=== PATIENT | male | born 1970 | race Caucasian/White ===

== ENCOUNTER 2019-08-21 11:19 | Observation (INO) ==
[2019-08-21] MEDS ORDERED: OPTIRAY 320 125ml IV PRN (11:52)
--- NOTE | 2019-08-21 11:58 | CT Scan Report ---
CT head/brain wo con CLINICAL HISTORY: 49 years-old Male with Stroke evaluation . Acute strokelike symptoms TECHNIQUE: Multiple axial CT images of the head were obtained without contrast. A dose lowering tech nique was utilized adhering to the principles of ALARA. CT DOSE: 679.75 mGycm COMPARISON: None. FINDINGS: No acute intracranial hemorrhage, midline shift, intracranial mass, hydrocephalus, territorial ischem ia or abnormal extra-axial collection. Probable prominent perivascular space of the left lentiform nu cleus. The calvarium is intact. 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 Hypoplastic right frontal sinus. The paranasal sinuses, mastoid air cells, and middle ear cavities are clear. IMPRESSION: No acute intracranial abnormality. ACT 112: Negative or not required by law. The above report was generated using voice recognition software. It may contain grammatical, syntax o r spelling errors. Electronically signed by: Onur Mosquera M.D. 08/21/2019 11:56 AM
[2019-08-21 12:03] LABS: Basophils # (auto) 0.02 K/uL (0-0.2); Basophils % (auto) 0.3 %; Eosinophils # (auto) 0.09 K/uL (0-0.5); Eosinophils % (auto) 1.1 %; Hematocrit (blood only) 53.9 % (42-52); Hemoglobin 19.5 g/dL (14.0-18.0); Immature Granulocytes # (auto) 0.02 K/uL (0.00-0.02); Immature Granulocytes % (auto) 0.3 %; Lymphocytes # (auto) 1.91 K/uL (1.2-3.4); Lymphocytes % (auto) 24.1 %; Mean Corpuscular Hemoglobin 32.3 pg (25-34); Mean Corpuscular Hgb Conc 36.2 g/dL (32-36); Mean Corpuscular Volume 89.4 fL (80-100); Mean Platelet Volume 11.2 fL (7.4-10.4); Monocytes # (auto) 0.61 K/uL (0.11-0.59); Monocytes % (auto) 7.7 %; Neutrophils # (auto) 5.28 K/uL (1.4-6.5); Neutrophils % (auto) 66.5 %; Platelet Count 174 K/uL (130-400); RDW Coefficient of Variation 13.4 % (11.5-14.5); Red Blood Count 6.03 M/uL (4.7-6.1); White Blood Count 7.93 K/uL (4.8-10.8)
[2019-08-21 12:14] LABS: Partial Thromboplastin Ratio 1.1; Partial Thromboplastin Time 30.8 Seconds (21.0-31.0); Prothrombin Time 10.5 Seconds (9.0-12.0)
[2019-08-21 12:17] LABS: Alanine Aminotransferase 47 U/L (12-78); Albumin Level 3.8 gm/dl (3.4-5.0); Aspartate Aminotransferase 14 U/L (15-37); BUN Creatinine Ratio 9.1 (10-20); Blood Urea Nitrogen 9 mg/dl (7-18); Carbon Dioxide 25 mmol/L (21-32); Chloride 106 mmol/L (98-107); Est GFR (African American) 103.9; Est GFR (Non-African American) 89.7; Glucose 116 mg/dl (70-99); Potassium 3.8 mmol/L (3.5-5.1); Sodium 137 mmol/L (136-145)
--- NOTE | 2019-08-21 12:18 | CT Scan Report ---
CT angio head w con, CT angio neck with con CLINICAL HISTORY: 49 years-old Male with Stroke evaluation . Acute strokelike symptoms COMPARISON STUDY: Head CT of same day TECHNIQUE: Following the IV administration of 120 cc of Optiray 320, CT angiogram of the head and nec k was performed from the aortic arch to the skull apex. Images are reviewed in the axial, sagittal, a nd coronal planes. 3-D MIPS images are created and assessed. IV contrast was administered without com plication. All measurements were obtained according to NASCET criteria. A dose lowering technique was utilized adhering to the principles of ALARA. CT DOSE: 1306.16 mGycm FINDINGS: Three-vessel morphology of the thoracic aortic arch. Patency of the innominate artery and imaged bila teral subclavian arteries. Common carotid arteries are patent. Mild right and mild to moderate left c arotid bulb mixed atheromatous and atherosclerotic plaque formation results in less than 50% luminal narrowing bilaterally. Bilateral internal carotid arteries are patent. Calcified plaque of the cavern ous segments bilaterally without significant stenosis. There is mostly mild multifocal luminal narrow ing involving the bilateral middle and anterior cerebral arteries. There are 2 focal areas of high-gr nilo stenosis involving the left M2 branches (for example please see images 130 and 132 of series 3). Focal area of moderate luminal narrowing involves the A2 branch of the right anterior cerebral artery , image 132 series 3. Dominant left vertebral artery. Diminutive right vertebral artery is likely developmental. Patent bas ilar artery. origin of the right posterior cerebral artery. The bilateral posterior cerebral ar teries appear patent. The cerebral venous sinuses are also patent. No abnormal intracranial enhanceme nt. Lung apices are clear. No pneumothorax. Soft tissues are unremarkable. Unremarkable thyroid. Streak a rtifact from dental amalgam hardware. Mild degenerative changes of the cervical spine. IMPRESSION: 1. Areas of high-grade stenosis/near occlusion involve the left M2 branches as above. This finding in conjunction with mild multifocal luminal narrowing of the middle and anterior cerebral arteries with focal area of moderate grade stenosis involving the right anterior cerebral artery appear to be out of proportion to the degree of atherosclerotic vascular disease. 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 2. Mixed plaque of the bilateral carotid bulbs, left greater than right results in less than 50% angel nal narrowing. ACT 112: Negative or not required by law. The above report was generated using voice recognition software. It may contain grammatical, syntax o r spelling errors. Electronically signed by: Onur Mosquera M.D. 08/21/2019 12:17 PM
[2019-08-21] MEDS ORDERED: ASPIRIN CHEW 324 MG ONE (12:21)
[2019-08-21 12:24] LABS: Alkaline Phosphatase 79 U/L (45-117); Bilirubin,Total 0.5 mg/dl (0.2-1); Total Protein 7.8 gm/dl (6.4-8.2); Troponin I < 0.015 ng/ml (0-0.045)
--- NOTE | 2019-08-21 14:45 | History & Physical Report ---
Date of Service August 21, 2019 Assessment & Plan (1) Stroke-like symptoms: Expressive dysphasia, now resolved. ABCD2 score 3 - low risk, although symptoms already reoccurred after 1 day therefore warrants observation and workup inpatient CT head - no acute intracranial abnormality, CTA - high-grade stenosis/near occlusion involving left M2 branch likely cause of his symptoms ?vasculitis as out of proportion to degree of atherosclerotic disease Complete stroke workup: Monitor on telemetry ESR/CRP to assess for vasculitis given young age and CTA findings MRI brain w/o contrast TTE Lipid panel and HbA1C with AM labs Start ASA 81mg PO daily, Atorvastatin 80mg PO daily pending neuro review Consult neurology (2) Polycythemia: Suspect due to smoking +/- obesity Consider outpatient sleep study although not particularly symptomatic if he dies have DALILA Repeat CBC in AM. Consider EPO level +/- JAK2 mutation given suspected stroke if Hgb remains elevated. (3) Tobacco use disorder: Declines nicotine replcement products at this stage Encouraged to quit smoking given young age and atherosclerotic disease (4) DVT prophylaxis: Deferred due to young age and mobility Admission and Anticipated Discharge Date Admission Date: 08/21/19 History of Present Illness Chief Complaint: Expressive dysphasia Primary Care Provider: NO PCP Tony Neal is a 49 year old smoker who presents to the ER with sudden onset expressive dysphasia. He reports two episodes of this. Once yesterday around 10am that lasted for approximately 20 minutes. However today he had an episode starting around 9:45-10am which lasted for approximately 1 hour. He was unable to get the right words out of write the correct words. No extremity weakness of change in sensation. No facial droop noticed although he had bilateral perioral tingling associated with this. No change in vision or hearing. No headache or neck pain. Associated mild light headedness He reports smoking 0.75 packs/day. Intermittently tried quitting such as when his ex was with her daughter and managed to quit cold turkey for approximately 1 year. Last tried quitting a few years ago. No fevers, chills, shortness of breath, cough, loss of taste or smell. No Covid- 19 exposure. With regards to possible DALILA - snores, but feels rested after waking up, sleeps well, no excessive dreaming, no tiredness during the daytime. 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 Beliefs That Will Affect Care: None Current Living Situation: Alone Current Living Situation Comment: occasionally daughter lives with patient Other Information That Helps Us Care for You: No Feels Safe at Home: Yes Safety Concerns: Feels Safe At This Time Smoking Status: Current every day smoker Tobacco Type: cigarettes ; Cigarettes Per Day: 20 ; Do You Dip or Chew Tobacco: No ; Tobacco Cessation Education Requested by Patient: No Hx Alcohol Use: Yes Alcohol type: beer Hx Substance Use: Yes substance use type: marijuana Last Used Substance: Unknown Review of Systems Review of Systems: All systems reviewed & are unremarkable except as noted in HPI & below Physical Exam Constitutional: well developed, well nourished and + obese; no acute distress Eyes: PERRL, conjunctivae normal, anicteric sclerae ENMT: external ear and nose normal, oropharynx normal Neck: trachea midline, no thyromegaly Respiratory: normal respiratory effort, lungs clear to auscultation Cardiovascular: RRR, no murmur, no edema Gastrointestinal (Abdomen): normal bowel sounds, soft, nontender, no hepatosplenomegaly Musculoskeletal: no cyanosis or clubbing, extremities motor strength 5/5 Skin: no rashes, warm and dry Neurologic: CN's II-XI intact bilaterally, moves all extremities and awake; no focal motor deficits and not confused Speech / Cognition: normal speech, no expressive aphasia, no receptive aphasia and normal cognition Motor/Sensory: no tremor, no pronator drift and no sensory deficit Psychiatric: A+Ox3, euthymic affect Results & Data Results & Data ([facility]) Vital Signs (Past 12 Hours) Vital Signs Temp Pulse Pulse Resp BP BP Pulse Ox 08/21/19 13:31 81 18 92 08/21/19 13:30 79 17 119/78 92 08/21/19 13:20 82 17 92 08/21/19 13:10 79 14 94 08/21/19 13:01 84 12 94 08/21/19 13:00 83 14 134/83 94 08/21/19 12:50 81 20 97 08/21/19 12:46 86 12 123/77 94 08/21/19 12:45 80 16 123/77 97 08/21/19 12:40 83 15 94 08/21/19 12:34 87 23 135/92 95 08/21/19 12:32 86 16 135/92 96 08/21/19 12:31 83 14 08/21/19 12:27 15 147/115 H 96 08/21/19 12:24 93 H 16 08/21/19 12:07 86 18 156/101 H 95 08/21/19 12:06 97 08/21/19 11:31 36.9 C 94 H 20 163/[address] head/brain wo con IMPRESSION: No acute intracranial abnormality. CT angio head w con, CT angio neck with con IMPRESSION: 1. Areas of high-grade stenosis/near occlusion involve the left M2 branches as above. This finding in conjunction with mild multifocal luminal narrowing of the middle and anterior cerebral arteries with focal area of moderate grade stenosis involving the right anterior cerebral artery appear to be out of proportion to the degree of atherosclerotic vascular disease. 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 2. Mixed plaque of the bilateral carotid bulbs, left greater than right results in less than 50% luminal narrowing. ECG Indication: other (suspected CVA) Rate (beats per minute): 91 Rhythm: normal sinus Findings: + RBBB (incomplete); no acute ischemic change Comparison ECG Date: no prior available Code Status & VTE Plan Code Status Full VTE Prophylaxis Plan VTE Prophylaxis will be ordered: No PG Care Time/CCT Total # of Minutes Spent Total Time Spent with Patient: Total time spent is greater than 50% in coordination of care (as documented) at patient's floor/unit and/or counseling patient: Coding Level of Care Code 05364 OBS Care - Level 3 Diagnoses Stroke-like symptoms R29.90 Polycythemia D75.1 Tobacco use disorder F17.200 DVT prophylaxis Z29.9
[2019-08-21] MEDS ORDERED: ACETAMINOPHEN 325 MG TAB PO PRN (16:21)
[2019-08-21] MEDS ORDERED: PHARMACIST DISCHARGE MED REC CONSULT PRN (16:21)
[2019-08-21] MEDS ORDERED: ONDANSETRON INJ 2 MG/ML 2 ML VIAL IV PRN (16:21)
[2019-08-21] MEDS ORDERED: POLYETHYLENE (MIRALAX) 17 GM PACK PO PRN (16:21)
[2019-08-21] MEDS ORDERED: ALUMINUM/MAGNESIUM SUSP 30 ML UDC PO PRN (16:21)
[2019-08-21] MEDS ORDERED: MAGNESIUM HYDROXIDE SUSP 30 ML UDC PO PRN (16:21)
--- NOTE | 2019-08-21 18:26 | Emergency Department Note ---
History of Present Illness General Chief complaint: Neuro Symptoms/Deficit Stated complaint: CONFUSION,SPEECH,MOTOR SKILLS DECREASED Time Seen by Provider: 08/21/19 11:40 History of Present Illness Provider complaint: Strokelike symptoms Onset (ago): minute(s) (90) Location: head Current Pain Intensity: 0 Associated symptoms: no chest pain, no diaphoresis, no fever/chills, no headaches, no nausea/vomiting and no shortness of breath 49-year-old male presents emergency department for strokelike symptoms. He states he was working at home at 10 AM when he began having difficulties finding his words, slurring his words and numbness in his face. He states these symptoms occurred intermittently. He states that he had similar symptoms that occurred yesterday for a few minutes to an hour and resolved yesterday so he did not present to the emergency department yesterday. He became concerned when the same types of symptoms happened again today. He denies any fevers. No loss of taste or smell. No chest pain or difficulty breathing. No headache. Home Medications Home Medications Medication Instructions Recorded Confirmed Type No Known Home Medications 08/21/19 08/21/19 History Allergies Allergy/AdvReac Type Severity Reaction Status Date / Time No Known Allergies Allergy Unverified 08/21/19 13:01 Past Med/Surg History Medical History (Updated 08/21/19 @ 18:26 by Elver Munoz) No pertinent family history No pertinent past medical history Surgical History (Updated 08/21/19 @ 18:20 by Elver Munoz) No pertinent past surgical history Social History Preferred Language: Chinese Communication Ability: Effective Take Away Worker Required: No Beliefs That Will Affect Care: None Current Living Situation: Alone Current Living Situation Comment: occasionally daughter lives with patient Other Information That Helps Us Care for You: No Feels Safe at Home: Yes Safety Concerns: Feels Safe At This Time Smoking Status: Current every day smoker Tobacco Type: cigarettes ; Cigarettes Per Day: 20 ; Do You Dip or Chew Tobacco: No ; Tobacco Cessation Education Requested by Patient: No Hx Alcohol Use: Yes Alcohol type: beer Hx Substance Use: Yes substance use type: marijuana Last Used Substance: Unknown Review of Systems A total of 10 systems reviewed and were otherwise negative Physical Exam Vital Signs Vital Signs - 24 hr 08/21/19 11:31 08/21/19 12:06 08/21/19 12:07 Temperature 36.9 C Temperature Source Oral Pulse Rate 94 H Pulse Rate [Left Finger] 86 Pulse Rate from SpO2 Sensor Respiratory Rate 20 18 Respiratory Effort / Characteristics Non-Labored Spontaneous Respiratory Depth Normal Respiratory Pattern Regular Blood Pressure 163/98 H Blood Pressure [Left Arm] 156/101 H Blood Pressure Mean 119 Blood Pressure Mean [Left Arm] 119 Pulse Oximetry 96 97 95 Oxygen Delivery Method Room Air Room Air Room Air Sepsis Recent Fever Within 48 Hours No Sepsis Action Taken by Nursing No Action Required 08/21/19 12:24 08/21/19 12:27 08/21/19 12:31 Temperature Temperature Source Pulse Rate 93 H 83 Pulse Rate [Left Finger] Pulse Rate from SpO2 Sensor 99 H Respiratory Rate 16 15 14 Respiratory Effort / Characteristics Respiratory Depth Respiratory Pattern Blood Pressure 147/115 H Blood Pressure [Left Arm] Blood Pressure Mean 125 Blood Pressure Mean [Left Arm] Pulse Oximetry 96 Oxygen Delivery Method Sepsis Recent Fever Within 48 Hours Sepsis Action Taken by Nursing 08/21/19 12:32 08/21/19 12:34 08/21/19 12:40 Temperature Temperature Source Pulse Rate 87 83 Pulse Rate [Left Finger] 86 Pulse Rate from SpO2 Sensor 87 84 Respiratory Rate 16 23 15 Respiratory Effort / Characteristics Respiratory Depth Respiratory Pattern Blood Pressure 135/92 Blood Pressure [Left Arm] 135/92 Blood Pressure Mean 99 Blood Pressure Mean [Left Arm] 106 Pulse Oximetry 96 95 94 Oxygen Delivery Method Room Air Sepsis Recent Fever Within 48 Hours Sepsis Action Taken by Nursing 08/21/19 12:45 08/21/19 12:46 08/21/19 12:50 Temperature Temperature Source Pulse Rate 86 81 Pulse Rate [Left Finger] 80 Pulse Rate from SpO2 Sensor 85 82 Respiratory Rate 16 12 20 Respiratory Effort / Characteristics Respiratory Depth Respiratory Pattern Blood Pressure 123/77 Blood Pressure [Left Arm] 123/77 Blood Pressure Mean 91 Blood Pressure Mean [Left Arm] 92 Pulse Oximetry 97 94 97 Oxygen Delivery Method Room Air Sepsis Recent Fever Within 48 Hours Sepsis Action Taken by Nursing 08/21/19 13:00 08/21/19 13:01 08/21/19 13:10 Temperature Temperature Source Pulse Rate 83 84 79 Pulse Rate [Left Finger] Pulse Rate from SpO2 Sensor 83 85 81 Respiratory Rate 14 12 14 Respiratory Effort / Characteristics Respiratory Depth Respiratory Pattern Blood Pressure 134/83 Blood Pressure [Left Arm] Blood Pressure Mean 95 Blood Pressure Mean [Left Arm] Pulse Oximetry 94 94 94 Oxygen Delivery Method Sepsis Recent Fever Within 48 Hours Sepsis Action Taken by Nursing 08/21/19 13:20 08/21/19 13:30 08/21/19 13:31 Temperature Temperature Source Pulse Rate 82 79 81 Pulse Rate [Left Finger] Pulse Rate from SpO2 Sensor 81 79 81 Respiratory Rate 17 17 18 Respiratory Effort / Characteristics Respiratory Depth Respiratory Pattern Blood Pressure 119/78 Blood Pressure [Left Arm] Blood Pressure Mean 83 Blood Pressure Mean [Left Arm] Pulse Oximetry 92 92 92 Oxygen Delivery Method Sepsis Recent Fever Within 48 Hours Sepsis Action Taken by Nursing 08/21/19 13:40 08/21/19 13:50 08/21/19 14:00 Temperature Temperature Source Pulse Rate 73 77 83 Pulse Rate [Left Finger] Pulse Rate from SpO2 Sensor 72 78 Respiratory Rate 13 20 20 Respiratory Effort / Characteristics Respiratory Depth Respiratory Pattern Blood Pressure 109/71 Blood Pressure [Left Arm] Blood Pressure Mean 83 Blood Pressure Mean [Left Arm] Pulse Oximetry 96 94 Oxygen Delivery Method Sepsis Recent Fever Within 48 Hours Sepsis Action Taken by Nursing 08/21/19 14:10 08/21/19 14:20 08/21/19 14:30 Temperature Temperature Source Pulse Rate 83 77 71 Pulse Rate [Left Finger] Pulse Rate from SpO2 Sensor 78 77 70 Respiratory Rate 21 18 15 Respiratory Effort / Characteristics Respiratory Depth Respiratory Pattern Blood Pressure 116/78 Blood Pressure [Left Arm] Blood Pressure Mean 91 Blood Pressure Mean [Left Arm] Pulse Oximetry 95 94 94 Oxygen Delivery Method Sepsis Recent Fever Within 48 Hours Sepsis Action Taken by Nursing 08/21/19 14:31 08/21/19 14:40 Temperature Temperature Source Pulse Rate 70 67 Pulse Rate [Left Finger] Pulse Rate from SpO2 Sensor 70 70 Respiratory Rate 17 16 Respiratory Effort / Characteristics Respiratory Depth Respiratory Pattern Blood Pressure Blood Pressure [Left Arm] Blood Pressure Mean Blood Pressure Mean [Left Arm] Pulse Oximetry 93 94 Oxygen Delivery Method Sepsis Recent Fever Within 48 Hours Sepsis Action Taken by Nursing Physical Exam GENERAL: He is oriented to person, place, and time. He appears well-developed and well-nourished. He does not appear distressed. HENT: Exam performed. - Head: Normocephalic and atraumatic. - Right Ear: External ear normal. No mastoid tenderness. - Left Ear: External ear normal. No mastoid tenderness. - Mouth/Throat: The oropharynx is clear and moist. No trismus in the jaw. No dental abscesses or uvula swelling. No oropharyngeal exudate or tonsillar abscesses. EYES: Conjunctivae and EOM are normal. Pupils are equal, round, and reactive to light. Right eye exhibits no discharge. Left eye exhibits no discharge. No scleral icterus. NECK: Normal range of motion. Neck supple. No JVD present. No spinous process tenderness present. No carotid bruit present. No rigidity. No tracheal deviation and normal range of motion present. No Brudzinski's sign and no Kernig's sign noted. CV: Normal rate, regular rhythm, normal heart sounds and intact distal pulses. There is no peripheral edema. Palpable radial pulses bue. PULM/CHEST: Effort normal and breath sounds normal. No respiratory distress. No stridor. He has no wheezes. He has no rales. - Chest Wall: He exhibits no tenderness. ABD: The abdomen is soft. Bowel sounds are normal. He has no distension. No mass is present. There is no tenderness. There is no rebound, no guarding, no Kovacs's sign and no tenderness at McBurney's point. Rovsig negative. MUSC/SKEL: Normal range of motion. There is no peripheral edema, tenderness or deformity. LYMPH: No cervical adenopathy. NEURO: HSS: 2 (1 for dysarthria and 1 for aphasia) SKIN: Skin is warm and dry. He is not diaphoretic. PSYCH: He has a normal mood and affect. Behavior is normal. Judgment and thought content normal. Course Course 1130: The patient was evaluated in room B1. A complete history and physical exam was performed. Patient was admitted and seen in the emergency department. He has a stroke scale of 2. Code stroke called on the patient. Patient was taken immediately to the CT scanner. 1317: Cardiac monitoring: An order was placed for continuous cardiac monitoring. The monitor shows a rate of 90 with sinus rhythm Vital signs stable. CT of the head CTA of the neck, and CT of the head are negative. Discussed with Dr. Anupam Patton tele-neurology who states admit the patient is a TIA and for further stroke work-up including MRI. She recommends aspirin at this time. Patient is in agreement with this plan. Contacting [facility] hospitalist team Dr. Ellis who agreed to the admission. Administered Medications Discontinued Medications Aspirin (Aspirin) Confirm Administered Dose 324 mg .ROUTE .STK-MED ONE Stop: 08/21/19 12:22 Last Admin: 08/21/19 12:25 Dose: 324 mg Documented by: [id number] Ioversol (Optiray 320 125ml) 120 ml IV ONCE PRN PRN Reason: Interaction Checking Stop: 08/25/19 11:51 Last Admin: 08/21/19 11:53 Dose: 120 ml Documented by: [id number] Critical Care Time Critical Care Time: Yes Total Critical Care Time: 105 I have personally spent greater than 105 minutes of critical care time in the direct management of this patient. This includes bedside care, interpretation of diagnostic studies, and testing, discussion with consultants, patient, and family members, and other required patient management activities. This 105 minutes is in excess of all separately billable procedures. Medical Decision Making Laboratory Data Result diagrams: 08/21/19 11:45 08/21/19 11:45 Lab Results 08/21/19 08/21/19 08/21/19 Range/Units 11:45 11:45 11:45 WBC 7.93 (4.8-10.8) K/uL RBC 6.03 (4.7-6.1) M/uL Hgb 19.5 H (14.0-18.0) g/dL Hct 53.9 H (42-52) % MCV 89.4 (80-100) fL MCH 32.3 (25-34) pg MCHC 36.2 H (32-36) g/dL RDW Std Deviation 44.0 (36.4-46.3) fL RDW Coeff of Bethany 13.4 (11.5-14.5) % Plt Count 174 (130-400) K/uL MPV 11.2 H (7.4-10.4) fL Immature Gran % (Auto) 0.3 % Neut % (Auto) 66.5 % Lymph % (Auto) 24.1 % Benson % (Auto) 7.7 % Eos % (Auto) 1.1 % Baso % (Auto) 0.3 % Immature Gran # (Auto) 0.02 (0.00-0.02) K/uL Neut # (Auto) 5.28 (1.4-6.5) K/uL Lymph # (Auto) 1.91 (1.2-3.4) K/uL Benson # (Auto) 0.61 H (0.11-0.59) K/uL Eos # (Auto) 0.09 (0-0.5) K/uL Baso # (Auto) 0.02 (0-0.2) K/uL ESR (0-14) mm/hr PT 10.5 (9.0-12.0) Seconds INR 1.0 (0.9-1.1) APTT 30.8 (21.0-31.0) Seconds PTT Ratio 1.1 Sodium (136-145) mmol/L Potassium (3.5-5.1) mmol/L Chloride (98-107) mmol/L Carbon Dioxide (21-32) mmol/L Anion Gap (3-11) BUN (7-18) mg/dl Creatinine (0.6-1.4) mg/dl Est Cr Clr Drug Dosing ml/min Est GFR ( Amer) Est GFR (Non-Af Amer) BUN/Creatinine Ratio (10-20) Glucose (70-99) mg/dl Calcium (8.5-10.1) mg/dl Magnesium (1.8-2.4) mg/dl Total Bilirubin (0.2-1) mg/dl AST (15-37) U/L ALT (12-78) U/L Alkaline Phosphatase (45-117) U/L Troponin I (0-0.045) ng/ml C-Reactive Protein (0-0.29) mg/dl Total Protein (6.4-8.2) gm/dl Albumin (3.4-5.0) gm/dl Globulin (2.5-4.0) gm/dl Albumin/Globulin Ratio (0.9-2) Blood Type AB Positive Antibody Screen NEGATIVE 08/21/19 08/21/19 08/21/19 Range/Units 11:45 11:45 11:45 WBC (4.8-10.8) K/uL RBC (4.7-6.1) M/uL Hgb (14.0-18.0) g/dL Hct (42-52) % MCV (80-100) fL MCH (25-34) pg MCHC (32-36) g/dL RDW Std Deviation (36.4-46.3) fL RDW Coeff of Bethany (11.5-14.5) % Plt Count (130-400) K/uL MPV (7.4-10.4) fL Immature Gran % (Auto) % Neut % (Auto) % Lymph % (Auto) % Benson % (Auto) % Eos % (Auto) % Baso % (Auto) % Immature Gran # (Auto) (0.00-0.02) K/uL Neut # (Auto) (1.4-6.5) K/uL Lymph # (Auto) (1.2-3.4) K/uL Benson # (Auto) (0.11-0.59) K/uL Eos # (Auto) (0-0.5) K/uL Baso # (Auto) (0-0.2) K/uL ESR 13 (0-14) mm/hr PT (9.0-12.0) Seconds INR (0.9-1.1) APTT (21.0-31.0) Seconds PTT Ratio Sodium 137 (136-145) mmol/L Potassium 3.8 (3.5-5.1) mmol/L Chloride 106 (98-107) mmol/L Carbon Dioxide 25 (21-32) mmol/L Anion Gap 6.0 (3-11) BUN 9 (7-18) mg/dl Creatinine 0.99 (0.6-1.4) mg/dl Est Cr Clr Drug Dosing 104.0 ml/min Est GFR ( Amer) 103.9 Est GFR (Non-Af Amer) 89.7 BUN/Creatinine Ratio 9.1 L (10-20) Glucose 116 H (70-99) mg/dl Calcium 9.0 (8.5-10.1) mg/dl Magnesium 2.0 (1.8-2.4) mg/dl Total Bilirubin 0.5 (0.2-1) mg/dl AST 14 L (15-37) U/L ALT 47 (12-78) U/L Alkaline Phosphatase 79 (45-117) U/L Troponin I < 0.015 (0-0.045) ng/ml C-Reactive Protein 0.47 H (0-0.29) mg/dl Total Protein 7.8 (6.4-8.2) gm/dl Albumin 3.8 (3.4-5.0) gm/dl Globulin 4.0 (2.5-4.0) gm/dl Albumin/Globulin Ratio 1.0 (0.9-2) Blood Type Antibody Screen Imaging Data Radiologist's Impression: CT angio head w con, CT angio neck with con CLINICAL HISTORY: 49 years-old Male with Stroke evaluation . Acute strokelike symptoms COMPARISON STUDY: Head CT of same day TECHNIQUE: Following the IV administration of 120 cc of Optiray 320, CT angiogram of the head and neck was performed from the aortic arch to the skull apex. Images are reviewed in the axial, sagittal, and coronal planes. 3-D MIPS images are created and assessed. IV contrast was administered without complication. All measurements were obtained according to NASCET criteria. A dose lowering technique was utilized adhering to the principles of ALARA. CT DOSE: 1306.16 mGycm FINDINGS: Three-vessel morphology of the thoracic aortic arch. Patency of the innominate artery and imaged bilateral subclavian arteries. Common carotid arteries are patent. Mild right and mild to moderate left carotid bulb mixed atheromatous and atherosclerotic plaque formation results in less than 50% luminal narrowing bilaterally. Bilateral internal carotid arteries are patent. Calcified plaque of the cavernous segments bilaterally without significant stenosis. There is mostly mild multifocal luminal narrowing involving the bilateral middle and anterior cerebral arteries. There are 2 focal areas of high-grade stenosis involving the left M2 branches (for example please see images 130 and 132 of series 3). Focal area of moderate luminal narrowing involves the A2 branch of the right anterior cerebral artery, image 132 series 3. Dominant left vertebral artery. Diminutive right vertebral artery is likely developmental. Patent basilar artery. origin of the right posterior cerebral artery. The bilateral posterior cerebral arteries appear patent. The cerebral venous sinuses are also patent. No abnormal intracranial enhancement. Lung apices are clear. No pneumothorax. Soft tissues are unremarkable. Unremarkable thyroid. Streak artifact from dental amalgam hardware. Mild degenerative changes of the cervical spine. IMPRESSION: 1. Areas of high-grade stenosis/near occlusion involve the left M2 branches as above. This finding in conjunction with mild multifocal luminal narrowing of the middle and anterior cerebral arteries with focal area of moderate grade stenosis involving the right anterior cerebral artery appear to be out of proportion to the degree of atherosclerotic vascular disease. Correlate clinically to exclude an underlying HR PAYROLL COORDINATOR vasculitis. 2. Mixed plaque of the bilateral carotid bulbs, left greater than right results in less than 50% luminal narrowing. ACT 112: Negative or not required by law. The above report was generated using voice recognition software. It may contain grammatical, syntax or spelling errors. Electronically signed by: Onur Mosquera M.D. 08/21/2019 12:17 PM Dictated: 08/21/19 1204 Transcribed: 08/21/[address] head/brain wo con CLINICAL HISTORY: 49 years-old Male with Stroke evaluation . Acute strokelike symptoms TECHNIQUE: Multiple axial CT images of the head were obtained without contrast. A dose lowering technique was utilized adhering to the principles of ALARA. CT DOSE: 679.75 mGycm COMPARISON: None. FINDINGS: No acute intracranial hemorrhage, midline shift, intracranial mass, hydrocephalus, territorial ischemia or abnormal extra-axial collection. Probable prominent perivascular space of the left lentiform nucleus. The calvarium is intact. 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 Hypoplastic right frontal sinus. The paranasal sinuses, mastoid air cells, and middle ear cavities are clear. IMPRESSION: No acute intracranial abnormality. ACT 112: Negative or not required by law. The above report was generated using voice recognition software. It may contain grammatical, syntax or spelling errors. Electronically signed by: Onur Mosquera M.D. 08/21/2019 11:56 AM Dictated: 08/21/19 1154 Transcribed: 08/21/19 115 ECG Data Indication: + other (Stroke) Rate (beats per minute): 91 Rhythm: + normal sinus ECG Intervals/blocks: + Normal QRS, + Normal CT and + Normal QT-c ECG ST segments: + Normal ST segments MDM Narrative 1130: The patient was evaluated in room B1. A complete history and physical exam was performed. Patient was admitted and seen in the emergency department. He has a stroke scale of 2. Code stroke called on the patient. Patient was taken immediately to the CT scanner. 1317: Cardiac monitoring: An order was placed for continuous cardiac m onitoring. The monitor shows a rate of 90 with sinus rhythm Vital signs stable. CT of the head CTA of the neck, and CT of the head are negative. Discussed with Dr. Anupam Patton tele-neurology who states admit the patient is a TIA and for further stroke work-up including MRI. She recommends aspirin at this time. Patient is in agreement with this plan. [facility]. Ellis who agreed to the admission. Impression & Plan TIA (transient ischemic attack) Discharge Plan Visit Data *Final* Discharge Date/Time: 08/21/19 16:00 Chief Complaint: Neuro Symptoms/Deficit Stated Complaint: CONFUSION,SPEECH,MOTOR SKILLS DECREASED ED Provider: Elver Munoz Discharge Problem: TIA (transient ischemic attack) Patient Disposition: Admitted As Inpatient Discharge Instructions Interventions: ED Discharge Assessment Last Done: 08/21/19 16:00
--- NOTE | 2019-08-21 20:29 | Magnetic Resonance Report ---
MRI OF THE BRAIN WITHOUT CONTRAST CLINICAL HISTORY: Expressive aphasia. COMPARISON STUDY: CT scan performed 08/21/2019 FINDINGS: Sagittal T1, axial diffusion, proton density and T2 weighted axial, coronal FLAIR, and axial T1-weigh dilan images were acquired. No intra or extra-axial mass lesions are visualized Axial diffusion-weighted images reveal no evidence of acute or subacute infarction. There is no evidence of ventricular dilatation. Subtle increased signal within the right posterior pa rietal cortex is felt to be artifactual. There is no corresponding ADC abnormality. There is no corre sponding T2 or FLAIR abnormality. Proton density T2-weighted and FLAIR images reveal a few scattered foci of increased T2 signal within the white matter, likely on a small vessel basis. There are no abnormal flow voids. IMPRESSION: 1. No acute intracranial findings 2. No evidence of intracranial mass in this noncontrast study 3. No evidence of acute or subacute infarction ACT 112: Negative or not required by law. Electronically signed by: Juan Oliva M.D. 08/21/2019 8:27 PM
[2019-08-21] MEDS ORDERED: ATORVASTATIN 40 MG TAB PO SCH (21:00)
[2019-08-22 05:50] LABS: Basophils # (auto) 0.02 K/uL (0-0.2); Basophils % (auto) 0.2 %; Eosinophils # (auto) 0.13 K/uL (0-0.5); Eosinophils % (auto) 1.3 %; Hematocrit (blood only) 53.8 % (42-52); Immature Granulocytes # (auto) 0.03 K/uL (0.00-0.02); Immature Granulocytes % (auto) 0.3 %; Lymphocytes % (auto) 32.4 %; Mean Corpuscular Hemoglobin 32.4 pg (25-34); Mean Corpuscular Hgb Conc 35.3 g/dL (32-36); Mean Corpuscular Volume 91.8 fL (80-100); Mean Platelet Volume 10.5 fL (7.4-10.4); Monocytes # (auto) 0.68 K/uL (0.11-0.59); Monocytes % (auto) 6.9 %; Neutrophils # (auto) 5.82 K/uL (1.4-6.5); Neutrophils % (auto) 58.9 %; Platelet Count 175 K/uL (130-400); RDW Coefficient of Variation 13.7 % (11.5-14.5); Red Blood Count 5.86 M/uL (4.7-6.1); White Blood Count 9.88 K/uL (4.8-10.8)
--- NOTE | 2019-08-22 06:00 | Electrocardiogram Report ---
Test Reason : Blood Pressure : / mmHG Vent. Rate : 091 BPM Atrial Rate : 091 BPM P-R Int : 130 ms QRS Dur : 108 ms QT Int : 364 ms P-R-T Axes : 058 062 051 degrees QTc Int : 447 ms Normal sinus rhythm Incomplete right bundle branch block Borderline ECG No previous ECGs available Confirmed by Wli Quintanilla ([id number]) on 08/22/2019 6:00:34 AM Referred By: Confirmed By:Wil Quintanilla
[2019-08-22 06:20] LABS: BUN Creatinine Ratio 11.2 (10-20); Calcium 8.4 mg/dl (8.5-10.1); Creatinine Clr Calc Pharmacy 110.9 ml/min; Est GFR (African American) 113.6
[2019-08-22 06:25] LABS: Estimated Average Glucose 108 mg/dl; Hemoglobin A1C 5.4 % (4.5-5.6)
[2019-08-22] MEDS ORDERED: ASPIRIN 81 MG ECTAB PO SCH (09:00)
--- NOTE | 2019-08-22 11:06 | Neurology Consultation ---
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 He has mild to moderate diffuse atherosclerotic change in other cranial vascular distributions. Although vasculitis was also suggested in the differential diagnosis by the interpreting radiologist, this patient does not have headache, myalgia or a significantly elevated ESR. Stroke risk factors for this patient would include cigarette smoking and polycythemia. Agree with starting high intensity statin therapy and daily low-dose aspirin. Would also recommend hematology evaluation of polycythemia which could be a significant risk factor for this patient. Would also order hypercoagulable lab evaluation. Although vasculitis seems unlikely given normal ESR and lack of associated systemic symptomatology, would also consider obtaining some lab evaluation for vasculitis such as an BRYAN 12 panel including ANCA antibodies (NC-3/MPO), serum cryoglobulins/lupus anticoagulant, and lab evaluation for viral hepatitis. Could also consider obtaining blood cultures to rule out endocarditis. Follow-up with results of transthoracic echocardiogram, consider obtaining a transesophageal echocardiogram as well. History of Present Illness Reason for Consultation: Expressive aphasia Requesting Physician: Scotty Ellis MD Attending Physician: Alton Zarate DO History of Present Illness The patient is a 49-year-old male with a chief complaint of intermittent difficulty with expressive speech that began 1 day prior to presentation in the emergency department. He reports an episode of sudden onset difficulty with word finding and typing on his computer on August 19 that persisted for about 15 minutes and resolved. He does not recall experiencing any associated headache, vision loss, vertigo, or focal weakness at that time. He did not seek medical evaluation for that episode. A second episode occurred the following day, on August 20 at around 10 AM. He was working on his computer at home at that time as well when he experienced sudden onset difficulty with expressive speech. He was unable to find specific words. He does not recall experiencing any associated headache, vision loss, vertigo, or focal weakness at that time. He reports that his 11-year-old daughter was home with him. His daughter called his spouse who brought him to the emergency department for further assessment. His symptoms had begun to resolve by the time he was assessed in the emergency department, and completely resolved within about 1 hour from onset. He has not had a recurrence of symptoms overnight and indicates that he feels like his usual self. He does not have a known history of stroke or TIA. He denies experiencing any significant antecedent illness or injury. No history of DVT or thromboembolic disease. He smokes about 1/2-3/4 of a pack of cigarettes per day. He does not see his primary care physician very often. Family history: patient denies a family history of stroke or thromboembolic disease. He also denies a history of autoimmune or inflammatory disease. Allergies Allergy/AdvReac Type Severity Reaction Status Date / Time No Known Allergies Allergy Unverified 08/21/19 13:01 Home Medications Home Medications Medication Instructions Recorded Confirmed Type No Known Home Medications 08/21/19 08/21/19 History Patient History Medical History No pertinent family history No pertinent past medical history Surgical History No pertinent past surgical history Social History Preferred Language: Kenyan Communication Ability: Effective Accounts Receivable Associate Required: No Beliefs That Will Affect Care: None Current Living Situation: Alone Current Living Situation Comment: occasionally daughter lives with patient Other Information That Helps Us Care for You: No Feels Safe at Home: Yes Safety Concerns: Feels Safe At This Time Smoking Status: Current every day smoker Tobacco Type: cigarettes ; Cigarettes Per Day: 20 ; Do You Dip or Chew Tobacco: No ; Tobacco Cessation Education Requested by Patient: No Hx Alcohol Use: Yes Alcohol type: beer Hx Substance Use: Yes substance use type: marijuana Last Used Substance: Unknown Review of Systems Constitutional: no fever and no chills Eyes: no blind spots and no diplopia Ear, Nose, Mouth, Throat: no hearing loss Respiratory: no cough and no dyspnea Cardiovascular: no chest pain and no palpitations Gastrointestinal: no nausea and no vomiting Genitourinary: no dysuria and no urinary incontinence Musculoskeletal: no neck pain and no myalgia Integumentary: no rash and no lesions Neurologic: as per Subjective / HPI; no localized weakness, no loss of sensation, no seizure-like activity, no syncope and no headache(s) Psychiatric: no depression and no anxiety Hematologic / Lymphatic: no easy bleeding and no easy bruising Exam (Neuro) Constitutional: well developed and well nourished; no acute distress Eyes: normal visual zepeda by confrontation, PERRL, normal accommodation and EOM intact bilaterally; no fundoscopic abnormality, no nystagmus and no papilledema Cardiovascular: Vessels: normal carotid upstroke; no carotid bruit Neurologic: Oriented to:: Person, Place and Time Memory: Short Term Intact and Remote Intact Attention: Span Intact and Concentration Intact Language: Naming Objects and Repeating Phrases Speech Fluency: negative Dysarthria Speech Aphasia: negative Aphasia Fund of Knowledge: Current Events, Past History and Vocabulary Cranial Nerves: Normal II (Visual zepeda full to confrontation, visual acuity normal), III, IV, (Pupils equal round reactive to light and accommodation, eye movements normal), V (Facial sensation intact), VII (There is no facial droop or weakness), VIII (Hearing intact), IX, X (Palate elevates to midline), XI (Shoulder shrug intact) and XII (Tongue protrudes to midline) Motor Strength: Normal Lower Extremities and Normal Upper Extremities; negative Pronator Drift Motor Tone: Normal Lower Extremities and Normal Upper Extremities Muscle Bulk/Involuntary Movements: No Involuntary Movements; negative Muscle Atrophy Sensation: Light Touch Intact, Pain/Temperature Intact, Vibration Intact and Proprioception Intact Coordination: Normal; negative Limited Balance, Dysdiadochokinesia, Finger-Nose Abnormal and Heel-Rosenbaum Abnormal Deep Tendon Reflexes: Rt Triceps: 2+, Lt Triceps: 2+, Rt Biceps: 2+, Lt Biceps: 2+, Rt Brachioradialis: 2+, Lt Brachioradialis: 2+, Rt Patellar: 2+, Lt Patellar: 2+, Rt Ankle: 2+ and Lt Ankle: 2+ Special Tests: negative Babinski Present Gait: Normal Station and Gait Results & Data ([facility]) Vital Signs (Past 12 Hours) Vital Signs Temp Pulse Pulse Resp BP Pulse Ox 08/22/19 08:03 36.7 C 70 17 132/78 95 08/22/19 03:52 37.0 C 79 17 115/77 96 08/21/19 23:50 75 08/21/19 23:31 37.1 C 67 18 114/74 96 Laboratory Results WBC 9.88, hemoglobin 19.0, hematocrit 53.8, platelet count 175 ESR 13, PT 10.5, INR 1.0, PTT 30.8, sodium 139, potassium 4.0, BUN 10, creatinine 0.92, glucose 91, hemoglobin A1c 5.4, troponin less than 0.015, CRP 0.47, triglycerides 196, cholesterol 190, LDL 115, VLDL 39, HDL 36 Diagnostic Findings MRI of the brain negative for acute or subacute stroke. No significant abnormalities. I reviewed the images as well as the radiologist's interpretation of this test. CT angiography of the head and neck reveals 2 focal areas of high-grade stenosis involving the left M2 branches and focal moderate narrowing of the right A2 branch. There is mild multifocal narrowing involving the bilateral middle and anterior cerebral arteries. These findings are potentially consistent with atherosclerotic disease versus vasculitis. There is mixed plaque within the bilateral carotid bulbs resulting in less than 50% narrowing. I reviewed the images as well as the radiologist interpretation of these tests. An electrocardiogram reveals a normal sinus rhythm, 91 bpm. PG Care Time/CCT Total # of Minutes Spent Total Time Spent with Patient: Total time spent is greater than 50% in coordination of care (as documented) at patient's floor/unit and/or counseling patient: Coding Level of Care Code 46150 Inpt Consult Level 5 Diagnoses TIA (transient ischemic attack) G45.9
[2019-08-22] MEDS ORDERED: SODIUM CHLORIDE 0.9% 1000ML 500 ML IV ONE (11:12)
[2019-08-22 11:37] VITALS: TEMP 97.7; O2SAT 94
[2019-08-22 13:47] VITALS: PULSE 86
[2019-08-22] MEDS ORDERED: STROKE PATIENT DISCHARGE STA (14:30)
--- NOTE | 2019-08-22 14:41 | Discharge Summary ---
Date of Service August 22, 2019 Admission HPI Per Admitting Provider Tony Neal is a 49 year old smoker who presents to the ER with sudden onset expressive dysphasia. He reports two episodes of this. Once yesterday around 10am that lasted for approximately 20 minutes. However today he had an episode starting around 9:45-10am which lasted for approximately 1 hour. He was unable to get the right words out of write the correct words. No extremity weakness of change in sensation. No facial droop noticed although he had bilateral perioral tingling associated with this. No change in vision or hearing. No headache or neck pain. Associated mild light headedness He reports smoking 0.75 packs/day. Intermittently tried quitting such as when his ex was with her daughter and managed to quit cold turkey for approximately 1 year. Last tried quitting a few years ago. No fevers, chills, shortness of breath, cough, loss of taste or smell. No Covid- 19 exposure. With regards to possible DALILA - snores, but feels rested after waking up, sleeps well, no excessive dreaming, no tiredness during the daytime. Principal Diagnosis TIA with aphasia Discharge Exam Constitutional WD/WN, vitals as above Eyes PERRL, conjunctivae normal, anicteric sclerae ENMT external ear and nose normal, oropharynx normal Neck trachea midline, no thyromegaly Respiratory normal respiratory effort, lungs clear to auscultation Cardiovascular RRR, no murmur, no edema Gastrointestinal (Abdomen) normal bowel sounds, soft, nontender, no hepatosplenomegaly Musculoskeletal no cyanosis or clubbing, extremities motor strength 5/5 Skin no rashes, warm and dry Neurologic patellar DTR's 2+ bilat, sensation intact and PERRL, EOMI, accommodation nl, no face palsy, no dysarthria Psychiatric A+Ox3, euthymic affect Lymphatic no cervical or axillary lymphadenopathy Discharge Data Allergies Allergy/AdvReac Type Severity Reaction Status Date / Time No Known Allergies Allergy Unverified 08/21/19 13:01 Consultations 08/21/19 13:17 ED Decision to Admit Stat 08/21/19 16:21 Consult Case Management - Discharge Planning Routine Consult Neurology Routine Ordered Studies 08/21/19 11:40 CT angio head w con Stat CT angio neck with con Stat CT head/brain wo con Stat 08/21/19 16:21 MR brain wo con Urgent Hospital Course (1) TIA (transient ischemic attack): Expressive dysphasia, now resolved. ABCD2 score 3 - low risk, although symptoms already reoccurred after 1 day therefore warrants observation and workup inpatient CT head - no acute intracranial abnormality, CTA - high-grade stenosis/near occlusion involving left M2 branch likely cause of his symptoms ?vasculitis as stenosis out of proportion to degree of atherosclerotic disease MRI brain with no acute stroke, no tumor/mass visualized all symptoms completely resolved, patient felt and examined normal on the day of discharge no afib noted on telemetry while in hospital HbA1c normal at 5.4% lipid panel showed total cholesterol 190, LDL 115 -- started on high intensity statin, Lipitor 80mg daily blood pressure normal without medications, no hypertension transthoracic echo with normal EF, no wall motion abnormalities, no cardiac thrombus and negative bubble study (no evidence of PFO, ASD) neurology consulted, recommend further work up with hypercoagulability panel, vasculitis panel treat stroke risk factors such as smoking, dyslipidemia and polycythemia (see below) Plan: d/c home on aspirin 81mg daily, Lipitor 80mg daily stop smoking immediately follow up with PCP on hypercoagulability panel and BRYAN 12 panel for screening purposes of note, ESR was normal at 13 which argues against CARD PUNCHER vasculitis treat polycythemia, follow up with Dr. Salter (2) Polycythemia: Suspect due to smoking +/- obesity Consider outpatient sleep study to rule out sleep apnea Hb 19.5 on admission, 19.0 today, his Hct is 53% discussed with Dr. Salter over the phone, he recommended the following therapeutic phlebotomy of 500mL, replace with 500mL of NSS scheduled for weekly therapeutic phlebotomy of 500mL, will go to [facility], plan for 3 further treatments sent out EPO level, should be back next week will follow up with Dr. Salter in one month to discuss further work up such as sleep study advised to stop smoking immediately start on aspirin 81mg daily (3) Tobacco use disorder: Encouraged to quit smoking given young age and atherosclerotic disease (4) Dyslipidemia: total cholesterol 190 and LDL 115 started on Lipitor 80mg daily due to stenosis in cerebral vasculature and TIA Total Time Total Time Spent Total Time Spent (In Minutes): 45 minutes Total Time Includes: Examination of the Patient, Discharge Planning, Medication Reconciliation and Communication With Other Providers (Dr. Deutsch, Dr. Salter) Discharge Plan Discharge Items Patient Disposition: Home - Self-Care Reason For Visit: STROKE-LIKE SYMPTOMS Discharge Diagnosis: Possible TIA Polycythemia (elevated red blood cells) Tobacco abuse Possible sleep apnea Condition on Discharge: Good Goals: follow up for repeated phlebotomy, once a week for 3 more weeks follow up with Dr. Salter, signal repairer, in a month to discuss elevated red blood cells follow up with new PCP in [facility], Dr. Martell, on 08/27 stop smoking request a formal sleep study to evaluate for sleep apnea, see below Activity: Resume your previous activity Non-emergency contact: Primary Care Provider Call non-emergency contact if: you have any medication questions and your symptoms worsen Follow-up/Referrals: Parish Salter V., DO [Physician] - (Please, follow up with Dr. Parish Salter (signal repairer). estimated time frame is one month *A nurse from this office will contact you with the appointment information. The office is located in the [facility] of [facility]. You will park BEHIND the hospital in [address] and enter via [employer]. If you have any questions, call the office at [phone].) Bibi Petty MD [Primary Care Provider] - 08/28/19 12:05 pm (Please, follow up at [facility] Office with Dr. Bibi Petty (Dr. Martell) on MondayAugust 27 at 12:05 pm. *Dr. Martell will be your new primary care provider. The office is located at [address] [facility] in [place]. If you need to change this appointment, call the office at [phone].) Diet: Heart Healthy Addtl Attending Provider Instructions: Medications - ASPIRIN: 81mg daily, obtain over the counter - LIPITOR: 80mg daily, statin medication to stabilize plaques please note, that this can cause muscle pain, speak with your PCP if you develop muscle aches TIA exhibited by expressive aphasia, resolved MRI brain with no evidence of acute stroke CT angiogram of the head shows narrowing of the M2 branch left middle cerebral artery ESR is normal at 13 which strongly argues against this being vasculitis multiple send out labs sent, including hypercoagulability labs, BRYAN screen/labs, erythropoeitin level Echo read is still pending, will call you if there are abnormal findings neurology recommends taking aspirin 81mg daily, taking Lipitor you need to stop smoking, starting today treat polycythemia, see below Polycythemia (elevated RBC) discussed with Dr. Salter, signal repairer recommends taking aspirin recommends therapeutic phlebotomy for 500mL once a week for 4 weeks total, first treatment today will set you up with [facility] for weekly phlebotomy, nurse navigator will reach out to you Pending Studies at Discharge: Yes Studies:: hypercoagulability panel BRYAN panel EPO level Stand-Alone Forms: Medications to Prevent Stroke, My [facility], Smoking Cessation Medications and DC Order Prescriptions: New atorvastatin 40 mg Tablet 80 mg PO QPM 30 Days Qty: 60 RF: 3 aspirin 81 mg Tablet,Delayed Release (Dr/Ec) 81 mg PO QAM 30 Days Qty: 30 RF: 3 No Action No Known Home Medications RF: 0 Discharge Orders: Discharge Order (Routine); Ordered 08/22/19 Ordered By: Alton Zarate Admission Data Admit Date/Time: 08/21/19 14:43 Attending Provider: Alton Zarate Admit Provider: Scotty Ellis Primary Care Provider: Bibi Petty Other Providers: Soctty Ellis ; Lionel Deutsch Other Interventions: Discharge Summary Assessment (RN) Last Done: 08/22/19 14:47 DC Date/Time DO NOT enter until pt leaves facility: 08/22/19 15:04 Coding Level of Care Code D/C Day Management >30 mins Diagnoses TIA (transient ischemic attack) G45.9 Polycythemia D75.1 Tobacco use disorder F17.200 Dyslipidemia E78.5
--- NOTE | 2019-08-22 14:44 | Pharmacy Report ---
Pharmacist Stroke Counseling - Date of Service August 22, 2019 - Scope: Pharmacy has been consulted to provide medication discharge counseling for this patient admitted with [ischemic stroke] [hemorrhagic stroke] [transient ischemic attack] as per the Pharmacist Discharge Counseling for Stroke Patients Deion chacon - Medications on Discharge: Home Medications Medication Instructions Recorded Confirmed No Known Home Medications 08/21/19 08/21/19 New Rx's Medication Instructions Recorded aspirin 81 mg PO QAM 30 Days #30 tab 08/22/19 atorvastatin 80 mg PO QPM 30 Days #60 tab 08/22/19 - Action: The above medications, specifically ones for stroke treatment/prophylaxis, have been reviewed in detail with the patient prior to discharge. This includes indication, common adverse reactions, drug interactions, and medication administration. Medication counseling has been employed using the teach-back method to ensure understanding. - Outcome: The patient has demonstrated understanding of the medications. Additional comments: -patient very receptive to counseling okay with new medications Thank you for allowing pharmacy to be involved in the care of this patient. Please call [phone] with any additional questions
[2019-08-22 14:49] VITALS: BP 127/84
--- NOTE | 2019-08-22 17:26 | XCELERA ---
[id number]
[2019-08-27 23:36] LABS: Anti Cardiolipin Ab IgG <14 GPL; Anti Cardiolipin Ab IgM <12 MPL; Anti Nuclear Antibody Screen NEGATIVE (NEGATIVE); Anti-Cardiolipin Ab IgA <11 APL; Anti-Centromere Ab <1.0 NEG AI (<1.0 NEG); Anti-SS-A <1.0 NEG AI (<1.0 NEG); Anti-SS-B <1.0 NEG AI (<1.0 NEG); Anti-Thrombin III Activity 86 % activity (80-120); B2 Glycoprotein IgA <9 SAU (<=20); B2 Glycoprotein IgG <9 SGU (<=20); B2 Glycoprotein IgM <9 SMU (<=20); Chromatin Antibody <1.0 NEG AI (<1.0 NEG); Complement C3 122 mg/dL (82-185); DNA ds Crithidia NEGATIVE (NEGATIVE); Erythropoietin 7.7 mIU/mL (2.6-18.5); Microsomal Ab 30 IU/mL (<9); PTT LA Screen 42 sec (<=40); Protein S Functional(Activity) 110 % (70-150); RNP Antibody <1.0 NEG AI (<1.0 NEG); Scleroderma Anti Scl-70 Ab <1.0 NEG AI (<1.0 NEG); Sm Antibody <1.0 NEG AI (<1.0 NEG)
[2019-08-29 14:31] LABS: Lupus Hex Phase (Rflxdonotord) Negative (Negative)
== END 2019-08-22 15:04 | disposition home or self-care (01) ==
LOC: ED 11:19 → 2S 11:19 → SUATTDRO 14:43 → 2S 16:00